=== PATIENT | male | born 1985 | race Caucasian/White ===

== ENCOUNTER 2018-07-18 15:21 | Emergency (ER) | payer OTHER ==
[~2018-07-18] VITALS: Ht 170.2 cm; Wt 75.7 kg
[2018-07-18 15:22] VITALS: BP 141/107; Ht 170.2 cm; Wt 75.7 kg
== END 2018-07-18 18:35 | disposition home or self-care (01) ==
LOC: ED 15:21
DX: J18.8 Other pneumonia, unspecified organism (principal)
CPT/HCPCS: J7512; J7620; Q0092